=== PATIENT | male | born 1965 ===

== ENCOUNTER → 2024-01-20 07:54 | Outpatient (REF) | payer OTHER, SELFPAY | LOC: WOUND 07:54 | PROVIDERS: ATTENDING PHYSICIAN Surgery | DX: L97.222 Non-pressure chronic ulcer of left calf with fat layer exposed (principal); W57.XXXS Bitten or stung by nonvenomous insect and other nonvenomous arthropods, sequela; E11.65 Type 2 diabetes mellitus with hyperglycemia; I50.9 Heart failure, unspecified; Z79.4 Long term (current) use of insulin | CPT/HCPCS: 99204 ==

== ENCOUNTER → 2024-01-26 09:41 | Outpatient (REF) | payer OTHER, SELFPAY | LOC: WOUND 09:41 | PROVIDERS: ATTENDING PHYSICIAN Surgery; FAMILY PHYSICIAN Family Medicine | DX: L97.222 Non-pressure chronic ulcer of left calf with fat layer exposed (principal); E11.65 Type 2 diabetes mellitus with hyperglycemia; I50.9 Heart failure, unspecified; Z79.4 Long term (current) use of insulin | CPT/HCPCS: 11042; 11045 ==

== ENCOUNTER → 2024-02-07 09:45 | Outpatient (REF) | payer OTHER, SELFPAY | LOC: WOUND 09:45 | PROVIDERS: ATTENDING PHYSICIAN Surgery; FAMILY PHYSICIAN Family Medicine | DX: L97.222 Non-pressure chronic ulcer of left calf with fat layer exposed (principal); W57.XXXA Bitten or stung by nonvenomous insect and other nonvenomous arthropods, initial encounter; E11.65 Type 2 diabetes mellitus with hyperglycemia; E11.9 Type 2 diabetes mellitus without complications; Z79.4 Long term (current) use of insulin; I50.9 Heart failure, unspecified | CPT/HCPCS: 11042; 11045 ==

== ENCOUNTER → 2024-02-21 09:42 | Outpatient (REF) | payer OTHER, SELFPAY | LOC: WOUND 09:42 | PROVIDERS: ATTENDING PHYSICIAN Surgery; FAMILY PHYSICIAN Family Medicine | DX: L97.222 Non-pressure chronic ulcer of left calf with fat layer exposed (principal); E11.65 Type 2 diabetes mellitus with hyperglycemia; Z79.4 Long term (current) use of insulin; I50.9 Heart failure, unspecified; W57.XXXA Bitten or stung by nonvenomous insect and other nonvenomous arthropods, initial encounter | CPT/HCPCS: 11042; 11045 ==

== ENCOUNTER 2024-02-22 05:58 | Day surgery (SDC) | payer OTHER, SELFPAY ==
[2024-02-22] VITALS (9 sets, daily range): BP systolic 115–178; BP diastolic 69–107; BMI 23.1
[2024-02-22 06:45] LABS: Glucose - Point of Care 166 mg/dl (70-99)
[2024-02-22] MEDS: LOW STRENGTH ASPIRIN 324 MG PO (07:21)
[2024-02-22] MEDS: NSS 195 ML IV (07:22)
[2024-02-22] MEDS: COREG 25 MG PO (07:34)
[2024-02-22] MEDS: APRESOLINE 50 MG PO (07:34)
[2024-02-22 08:20] LABS: ACT-LR - POC 247 Seconds (116-155)
--- NOTE | 2024-02-22 08:39 | ITS.CL.CATH ---
Casserole Preparer - Catheterization
Cardiac Catheterization
Procedure Report:
LEFT HEART CATHETERIZATION
Date of Procedure: February 22, 2024
Procedures performed:
1: Coronary angiography
2: Left ventricular hemodynamic assessment
3: Physiologic lesion assessment left anterior descending artery
Primary Care Physician: Dr. López Crowder
Primary Furs Salesperson: Dr. Ronni Nugent
INDICATION: The patient is a 58-year-old male with longstanding hypertension and diabetes with recent noncompliance and admission for congestive heart failure associated with drop in LV systolic function who is referred for coronary angiography. He
is now back on medical therapy and feeling much better. No typical angina.
ACCESS: The patient was prepped and draped in usual sterile fashion. A 5 Finnish sheath was placed in the right radial artery using the Seldinger over the wire technique.
HEMODYNAMIC FINDINGS (mmHg):
LV(s/d,EDP): 161/16, 29 post IV nitroglycerin 300 mc/3, 14
Ao(s/d,m): 150/90, 116
ANGIOGRAPHIC FINDINGS:
Single-plane Left Ventriculography in EASON Projection: Not done.
Coronary Angiography:
Dominance: Right
Left Main: Normal
Left Anterior Descending: The left anterior descending artery is a large-caliber vessel that gives rise to several medium caliber diagonal branches which are widely patent. The LAD itself has mild to moderate proximal luminal irregularities with a
smooth 40 to 50% mid stenosis after the first septal can worker. The remainder of the distal vessel appears angiographically normal with normal flow. The apical LAD wraps around the apex to the provide significant perfusion to the distal inferior
wall.
Left Circumflex: The left circumflex is a relatively large nondominant system that gives rise to 3 major obtuse marginal branches. These vessels are widely patent with no flow-limiting disease. There is a smooth 30% stenosis noted in the
midportion of the third obtuse marginal branch. All vessels have normal flow.
Right Coronary: The right coronary artery is a large-caliber dominant vessel that gives rise to a large caliber posterior descending artery and even larger posterior left ventricular branch. There are mild to moderate nonobstructive luminal
irregularities throughout the AV groove with at worst a 30% distal stenosis. The posterior left ventricular branch has a focal proximal 40-50% stenosis with normal distal flow.
Physiologic lesion assessment of the left anterior descending artery: In light of borderline angiographic appearance and the development of LV systolic dysfunction, I elected to perform physiologic lesion assessment of the left anterior descending
artery. A 5 Finnish JL 4 guiding catheter was used to engage the left main. A Omni pressure wire was advanced down the LAD with the transducer in the normal-appearing distal LAD. The IFR was serially measured at 0.94 well above the ischemic
threshold. The wire was pulled back and final angiography confirmed no changes.
Fluoroscopy Time (min): 3.9
Radiation Dose (mGy): 297
DAP (Gy.cm2): 21
Closure device: None. A TR band was applied for hemostasis at the right wrist.
Complications: None.
ASSESSMENT:
1: Mild nonobstructive coronary artery disease.
2: Elevated left ventricular filling pressures in the setting of poorly controlled systemic hypertension responsive to IV nitroglycerin.
CONCLUSIONS and RECOMMENDATIONS:
1: Continue aggressive medical therapy for hypertension, diabetes, and coronary artery disease. I suspect any cardiomyopathy is related to hypertension.
Shante Ross M.D.
Copy to: Dr. López Crowder
[2024-02-22] MEDS: NSS 1000 IV (09:07)
== END 2024-02-22 11:55 | disposition home or self-care (01) ==
LOC: CATH 05:58
PROVIDERS: ATTENDING PHYSICIAN Internal Medicine Interventional Cardiology; FAMILY PHYSICIAN Family Medicine; OTHER PHYSICIAN Internal Medicine
DX: I25.10 Atherosclerotic heart disease of native coronary artery without angina pectoris (principal); I11.0 Hypertensive heart disease with heart failure; I50.22 Chronic systolic (congestive) heart failure; E11.9 Type 2 diabetes mellitus without complications; Z79.84 Long term (current) use of oral hypoglycemic drugs; Z79.4 Long term (current) use of insulin
CPT/HCPCS: 93799; C1769; 82962; 85347; 93005; 93458; Q9967

== ENCOUNTER → 2024-03-19 09:30 | Outpatient (REF) | payer OTHER, SELFPAY | LOC: WOUND 09:30 | PROVIDERS: ATTENDING PHYSICIAN Surgery; FAMILY PHYSICIAN Family Medicine | DX: L97.222 Non-pressure chronic ulcer of left calf with fat layer exposed (principal); W57.XXXS Bitten or stung by nonvenomous insect and other nonvenomous arthropods, sequela; E11.65 Type 2 diabetes mellitus with hyperglycemia; E11.9 Type 2 diabetes mellitus without complications; I50.9 Heart failure, unspecified; Z79.4 Long term (current) use of insulin | CPT/HCPCS: 11042; 11045 ==

== ENCOUNTER → 2024-03-30 09:39 | Outpatient (REF) | payer OTHER, SELFPAY | LOC: WOUND 09:39 | PROVIDERS: ATTENDING PHYSICIAN Surgery; FAMILY PHYSICIAN Family Medicine | DX: L97.222 Non-pressure chronic ulcer of left calf with fat layer exposed (principal); W57.XXXS Bitten or stung by nonvenomous insect and other nonvenomous arthropods, sequela; E11.65 Type 2 diabetes mellitus with hyperglycemia; E11.9 Type 2 diabetes mellitus without complications; Z79.4 Long term (current) use of insulin; I50.9 Heart failure, unspecified | CPT/HCPCS: 11042; 11045 ==

== ENCOUNTER → 2024-04-24 08:53 | Outpatient (REF) | payer OTHER, SELFPAY | LOC: WOUND 08:53 | PROVIDERS: ATTENDING PHYSICIAN Surgery; FAMILY PHYSICIAN Family Medicine | DX: L97.222 Non-pressure chronic ulcer of left calf with fat layer exposed (principal); W57.XXXA Bitten or stung by nonvenomous insect and other nonvenomous arthropods, initial encounter; E11.65 Type 2 diabetes mellitus with hyperglycemia | CPT/HCPCS: 99213 ==

== ENCOUNTER → 2024-05-17 09:37 | Outpatient (REF) | payer OTHER, SELFPAY | LOC: WOUND 09:37 | PROVIDERS: ATTENDING PHYSICIAN Surgery; FAMILY PHYSICIAN Family Medicine | DX: L97.222 Non-pressure chronic ulcer of left calf with fat layer exposed (principal); E11.65 Type 2 diabetes mellitus with hyperglycemia; I50.9 Heart failure, unspecified; Z79.4 Long term (current) use of insulin | CPT/HCPCS: 97597 ==

== ENCOUNTER → 2024-08-09 09:36 | Outpatient (REF) | payer OTHER, SELFPAY | LOC: WOUND 09:36 | PROVIDERS: ATTENDING PHYSICIAN Surgery; FAMILY PHYSICIAN Family Medicine | DX: L97.222 Non-pressure chronic ulcer of left calf with fat layer exposed (principal); E11.65 Type 2 diabetes mellitus with hyperglycemia; Z79.4 Long term (current) use of insulin; I50.9 Heart failure, unspecified | CPT/HCPCS: 99212 ==